=== PATIENT | female | born 1995 | race Caucasian/White ===

== ENCOUNTER 2016-08-31 09:17 | Emergency (ER) | payer OTHER ==
[2016-08-31 09:38] VITALS: BP 123/82; PULSE 89; RESP 16; TEMP 99.1; O2SAT 97
--- NOTE | 2016-08-31 09:46 | UCPHY ---
H & P Time Seen by Provider: 08/31/16 09:22 Patient Type: New HPI/ROS: CHIEF COMPLAINT: Cough and sore throat History by patient HISTORY OF PRESENT ILLNESS: 21-year-old woman with a history of an unspecified immunosuppressive disorder and asthma that she says gives her a little low white blood cell count presents complaining of 2 days of cough and now sore throat. Cough is productive of some yellow sputum. She has had a little bit of a runny nose. She has subjective fever yesterday. She says she has tried to use her inhaler for the cough but she has a hard time taking a deep breath without coughing. She denies any nausea, vomiting or diarrhea or rash. She has been taking TheraFlu without relief. She had a tonsillectomy as a child but still has had several episodes of strep throat in the past. REVIEW OF SYSTEMS: As in HPI, and all other systems reviewed and are negative Smoking Status: Never smoked Physical Exam: General Appearance: Alert and no distress. Head: normocephalic, atraumatic, no sinus tenderness Eyes: Pupils equal and round no injection. Ears: TM clear bilat OP: mucus membranes moist, positive pharyngeal erythema and small red lesions on soft palate, no tonsillar enlargement, no exudates, no stridor Neck: no meningismus, positive left cervical nodes, no submandibular nodes Respiratory: Chest is nontender, lungs are clear to auscultation. No wheezes or rales Cardiac: regular rate and rhythm. Gastrointestinal: Abdomen is soft and nontender, no masses, bowel sounds normal. Musculoskeletal: Neck is supple and nontender. Extremities have full range of motion and are nontender. Skin: No rashes or lesions. Constitutional: Initial Vital Signs Temperature (C) 37.3 C 08/31/16 09:34 Heart Rate 89 08/31/16 09:34 Respiratory Rate 16 08/31/16 09:34 Blood Pressure 123/82 H 08/31/16 09:34 O2 Sat (%) 97 08/31/16 09:34 O2 Delivery Mode Room Air Allergies/Adverse Reactions: No Known Allergies Allergy (Unverified 08/31/16 09:38) Home Medications: Medication Instructions Recorded ALBUTEROL SULFATE 08/31/16 Depo-Provera 08/31/16 Medical Decision Making ED Course/Re-evaluation: Patient presents with sore throat and cough with history of unclear immuno suppression disease. Patient is afebrile here. There is no evidence of systemic toxicity or respiratory distress. Strep was negative. Influenza was negative. We discussed conservative home care measures and return precautions including but not limited to high fever, difficulty breathing or new symptoms. Patient understands and is agreeable to this plan. - Data Points Laboratory Results: 08/31/16 08/31/16 08/31/16 Unknown 09:40 09:25 Influenza Typ A,B (DFA) NEGATIVE FOR FLU (NEGATIVE) Group A Strep Screen NEGATIVE (NEGATIVE) Group A Strep DNA Pending Departure - Departure Disposition: Home, Routine, Self-Care Clinical Impression: Cough in adult Pharyngitis Qualifiers: Pharyngitis/tonsillitis etiology: unspecified etiology Qualified Code(s): J02.9 - Acute pharyngitis, unspecified Condition: Good Instructions: Pharyngitis (ED) Additional Instructions: You were seen by Dr. Mena Fletcher today. Return for any worsening or new concerns. Try hot drinks with honey free air cough and sore throat. Use your inhaler for coughing with the spacer. Take ibuprofen and/or Tylenol as needed for pain and fever. - PQRS PQRS Measurement: NA
== END 2016-08-31 10:30 | disposition home or self-care (01) ==
LOC: CED 09:17
DX: R05 Cough (principal); J02.9 Acute pharyngitis, unspecified
CPT/HCPCS: 87400-PO; 87880-PO; 99203-PO; G0463-PO

== ENCOUNTER → 2018-03-16 | Outpatient (CLI) | payer OTHER | LOC: CIMAGING 16:40 | PROVIDERS: ATTEND Family Medicine | DX: N83.202 Unspecified ovarian cyst, left side (principal); Z97.5 Presence of (intrauterine) contraceptive device | CPT/HCPCS: 76856-PO ==